=== PATIENT | female | born 1960 | race Caucasian/White ===

== ENCOUNTER 2025-10-16 07:11 | Outpatient (RCR) | payer BC, SELFPAY | END 2025-10-16 23:59 | disposition home or self-care (01) | LOC: RPT 07:11 | PROVIDERS: ATTENDING PHYSICIAN Obstetrics & Gynecology; FAMILY PHYSICIAN Registered Nurse | DX: M62.89 Other specified disorders of muscle (principal); R35.0 Frequency of micturition; N39.41 Urge incontinence; Z73.6 Limitation of activities due to disability | CPT/HCPCS: 97110; 97163; 97530 ==